=== PATIENT | male | born 1980 | race Caucasian/White ===

== ENCOUNTER 2020-02-22 16:42 | Emergency (ER) | payer BC ==
--- NOTE | 2020-02-22 17:19 | ER Document Report ---
ED Medical Screen (RME) - General Chief Complaint: Chest Pain Stated Complaint: CHEST PAIN, LEFT ARM PAIN Time Seen by Provider: 02/22/20 17:12 Primary Care Provider: MAUDE MONROY MD [Primary Care Provider] - Follow up as needed Mode of Arrival: Ambulatory Information source: Patient Notes: 39-year-old male presented to ED for complaint of chest pain that started about 11 AM. He states it went down his left arm but did not go up to his jaw or up to his face. He is alert oriented respirations regular nonlabored speaking in full sentences. He denies any cardiac history except for high blood pressure and cholesterol. He states blood pressure is cold trolled with diet. He also has a history of migraines and a fractured hand and an appendectomy. He states about 5 or 6 years ago he had some chest pain and palpitations when he drank too much caffeine but is stayed away from more than 1 cup of coffee since then. I have greeted and performed a rapid initial assessment of this patient. A comprehensive ED assessment and evaluation of the patient, analysis of test results and completion of medical decision making process will be conducted by a n additional ED providers. TRAVEL OUTSIDE OF THE [place] IN LAST 30 DAYS: No - Related Data Allergies/Adverse Reactions: almond Allergy (Verified 02/22/20 17:11) aspirin [Aspirin] Allergy (Verified 10/10/14 09:45) barium iodide [Barium Iodide] Allergy (Verified 10/10/14 09:45) diphenhydramine HCl [From Benadryl] Allergy (Verified 10/10/14 09:45) ibuprofen Allergy (Verified 10/10/14 09:45) Past Medical History Pulmonary Medical History: Reports: Hx Asthma - Immunizations Hx Diphtheria, Pertussis, Tetanus Vaccination: Yes Physical Exam - Vital signs Vitals: Temp Pulse Resp BP Pulse Ox 99.4 F 56 L 16 155/83 H 100 02/22/20 16:56 02/22/20 16:56 02/22/20 16:56 02/22/20 16:56 02/22/20 16:56 Course - Vital Signs Vital signs: Temp Pulse Resp BP Pulse Ox 99.4 F 56 L 16 155/83 H 100 02/22/20 16:56 02/22/20 16:56 02/22/20 16:56 02/22/20 16:56 02/22/20 16:56 Doctor's Discharge - Discharge Referrals: MAUDE MONROY MD [Primary Care Provider] - Follow up as needed
[2020-02-22 17:33] LABS: ABSOLUTE EOSINOPHILS # (AUTO) 0.2 10^3/uL (0.0-0.6); ABSOLUTE LYMPHOCYTES (AUTO) 2.2 10^3/uL (0.5-4.7); ABSOLUTE MONOCYTES (AUTO) 0.7 10^3/uL (0.1-1.4); ABSOLUTE NEUT (AUTO) 3.6 10^3/uL (1.7-8.2); BASOPHILS % (AUTO) 0.3 % (0-2); EOSINOPHILS % (AUTO) 2.7 % (0-6); HEMOGLOBIN 14.5 g/dL (13.5-17.0); LYMPHOCYTES % (AUTO) 32.9 % (13-45); MEAN CORPUSCULAR HEMOGLOBIN 30.3 pg (27.0-33.4); MEAN CORPUSCULAR HGB CONC 34.4 g/dL (32.0-36.0); MEAN CORPUSCULAR VOLUME 88 fl (80-97); MONOCYTES % (AUTO) 10.7 % (3-13); PLATELET COUNT 256 10^3/uL (150-450); RED BLOOD COUNT 4.77 10^6/uL (4.35-5.55); RED CELL DISTRIBUTION WIDTH 13.4 % (11.5-14.0); SEGMENTED NEUTROPHILS % (AUTO) 53.4 % (42-78); TOTAL CELLS COUNTED % (AUTO) 100 %; WHITE BLOOD COUNT 6.8 10^3/uL (4.0-10.5)
--- NOTE | 2020-02-22 17:43 | RADIOLOGY REPORT (SQ) ---
EXAM DESCRIPTION: CHEST 2 VIEWS IMAGES COMPLETED DATE/TIME: 02/22/2020 5:36 pm REASON FOR STUDY: Chest pain radiating down left arm COMPARISON: PET-CT 12/02/2014 AP chest 02/18/2007 EXAM PARAMETERS: NUMBER OF VIEWS: two views TECHNIQUE: Digital Frontal and Lateral radiographic views of the chest acquired. RADIATION DOSE: NA LIMITATIONS: none FINDINGS: LUNGS AND PLEURA: No opacities, masses or pneumothorax. No pleural effusion. MEDIASTINUM AND HILAR STRUCTURES: No masses or contour abnormalities. HEART AND VASCULAR STRUCTURES: Heart normal size. No evidence for failure. BONES: No acute findings. HARDWARE: None in the chest. OTHER: No other significant finding. IMPRESSION: NO ACUTE RADIOGRAPHIC FINDING IN THE CHEST. TECHNICAL DOCUMENTATION: JOB ID: [id number] [id number]- All Rights Reserved Reading location - IP/workstation name: [id number]
[2020-02-22 17:51] LABS: ALBUMIN 4.7 g/dL (3.5-5.0); ALKALINE PHOSPHATASE 47 U/L (38-126); ANION GAP 8 (5-19); ASPARTATE AMINO TRANSFERASE 32 U/L (17-59); BILIRUBIN,TOTAL 0.4 mg/dL (0.2-1.3); BLOOD UREA NITROGEN 21 mg/dL (7-20); CALCIUM 9.7 mg/dL (8.4-10.2); CARBON DIOXIDE 29 mmol/L (22-30); CHLORIDE 103 mmol/L (98-107); GLUCOSE 111 mg/dL (75-110); POTASSIUM 3.9 mmol/L (3.6-5.0); TOTAL PROTEIN 7.5 g/dL (6.3-8.2)
--- NOTE | 2020-02-22 22:51 | ER Document Report ---
ED General - General Chief Complaint: Chest Pain Stated Complaint: CHEST PAIN, LEFT ARM PAIN Time Seen by Provider: 02/22/20 17:12 Primary Care Provider: MAUDE MONROY MD [Primary Care Provider] - Follow up as needed Mode of Arrival: Ambulatory Notes: 39-year-old generally healthy male presents emergency department with chief complaint of chest pain that occurred at 11 AM today. Patient states he reached across to get something and felt a twinge across his chest that briefly radiated into his left arm. The pain has mostly subsided. Patient states that he just feels unwell but has no nausea or vomiting, no diaphoresis, no dyspnea on exertion. 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 No direct family history of early cardiac . Patient states that the pain was initially sharp and lingered for a few minutes, did not take anything of it and took a nap, then woke up not feeling well and his fiance recommended that he come for evaluation. No loss of consciousness or dizziness. No other complaints TRAVEL OUTSIDE OF THE [place] IN LAST 30 DAYS: No - Related Data Allergies/Adverse Reactions: almond Allergy (Verified 02/22/20 17:11) aspirin [Aspirin] Allergy (Verified 10/10/14 09:45) barium iodide [Barium Iodide] Allergy (Verified 10/10/14 09:45) diphenhydramine HCl [From Benadryl] Allergy (Verified 10/10/14 09:45) ibuprofen Allergy (Verified 10/10/14 09:45) Home Medications: Atorvastatin, Sumatriptan Past Medical History - General Information source: Patient - Social History Smoking Status: Unknown if Ever Smoked Family History: Reviewed & Not Pertinent Patient has suicidal ideation: No Patient has homicidal ideation: No Pulmonary Medical History: Reports: Hx Asthma Past Surgical History: Reports: Hx Appendectomy - Immunizations Hx Diphtheria, Pertussis, Tetanus Vaccination: Yes Review of Systems - Review of Systems Constitutional: See HPI EENT: No symptoms reported Cardiovascular: See HPI Respiratory: See HPI Gastrointestinal: See HPI Genitourinary: No symptoms reported Male Genitourinary: No symptoms reported Musculoskeletal: See HPI Skin: No symptoms reported Hematologic/Lymphatic: No symptoms reported Neurological/Psychological: No symptoms reported Physical Exam - Vital signs Vitals: Temp Pulse Resp BP Pulse Ox 99.4 F 56 L 16 155/83 H 100 02/22/20 16:56 02/22/20 16:56 02/22/20 16:56 02/22/20 16:56 02/22/20 16:56 - Notes Notes: PHYSICAL EXAMINATION: Reviewed vital signs and charting by RN GENERAL: Alert, interacts well. No acute distress. HEAD: Normocephalic, atraumatic. EYES: Pupils equal and round. Extraocular movements intact. ENT: Oral mucosa moist, tongue midline. NECK: Full range of motion. Trachea midline. LUNGS: Clear to auscultation bilaterally, no wheezes, rales, or rhonchi. No r espiratory distress. HEART: Regular rate and rhythm. No murmur ABDOMEN: soft, non-tender. No distention. Bowel sounds present EXTREMITIES: Moves all 4 extremities spontaneously. No edema, No cyanosis. PSYCH: Normal affect, normal mood. SKIN: Warm, dry, normal turgor. No rashes or lesions noted. Course - Re-evaluation Re-evalutation: 02/22/20 23:01 Presentation of chest pain in an otherwise well appearing patient. Low clinical suspicion for ACS given clinical history, exam, EKG without ST elevations or depressions, and negative initial troponin. HEART score less than or equal to 3. PE also seems unlikely given clinical history, absence of tachycardia or dyspnea. Patient is PERC criteria negative. CXR without evidence of pneumothorax or pneumonia. No widened mediastinum. Aortic dissection also seems unlikely given history, symmetric pulses, CXR, and vitals. At this time I discussed the results with patient, risk factors, and discussion about follow-up stress testing. Patient understands and agrees with the plan and he is stable for discharge. - Vital Signs Vital signs: Temp Pulse Resp BP Pulse Ox 99.4 F 56 L 15 154/90 H 100 02/22/20 17:13 02/22/20 16:56 02/22/20 20:55 02/22/20 20:55 02/22/20 20:56 - Laboratory Result Diagrams: 02/22/20 17:20 02/22/20 17:20 Laboratory results interpreted by me: 02/22/20 17:20 BUN 21 H Glucose 111 H Discharge - Discharge Clinical Impression: Chest pain of unknown etiology Condition: Good Disposition: HOME, SELF-CARE Additional Instructions: You were seen today for chest pain. The exact cause of your pain is unclear. However, based on your cardiac enzyme testing, chest x-ray, and EKG it does not appear that it is from an immediately life-threatening cause at this time. Although your testing here is normal is critical that you follow-up with your primary care physician for continued evaluation of this chest pain and possible stress testing. I recommended you see your physician within the next 24-48 hours to be evaluated for consideration of a stress test. Please return to emergency department immediately if you have worsening of your chest pain, shortness of breath, vomiting, become unable to exert yourself due to pain or difficulty breathing, you pass out, or have any pain that radiates into your arms, jaw, or back. Please also return if you have any additional symptoms that are concerning to you. Referrals: MAUDE MONROY MD [Primary Care Provider] - Follow up as needed
--- NOTE | 2020-02-23 | EKG REPORT ---
SEVERITY:- ABNORMAL ECG - SINUS RHYTHM LAD, CONSIDER LEFT ANTERIOR FASCICULAR BLOCK : Confirmed by: Chevy Hawley 22-Feb-2020 23:59:56
[2020-02-23 00:24] VITALS: BP 142/84
== END 2020-02-22 23:40 | disposition home or self-care (01) ==
LOC: ER 16:42
DX: R07.9 Chest pain, unspecified (principal); M79.602 Pain in left arm; F17.290 Nicotine dependence, other tobacco product, uncomplicated; Z88.8 Allergy status to other drugs, medicaments and biological substances; Z79.899 Other long term (current) drug therapy; J45.909 Unspecified asthma, uncomplicated
CPT/HCPCS: 36415; 71046; 80053; 83735; 84484; 85025; 93005; 93010; 99285